=== PATIENT | female | born 1950 | race Caucasian/White ===

== ENCOUNTER 2022-07-05 09:16 | Day surgery (SDC) | payer OTHER ==
[2022-06-29 16:02] VITALS: BMI 26.2
[2022-07-05] MEDS ORDERED: NEO/POLYMYX B SULF/DEXAMETH OPHTHALMIC 5ML BOTTLE ONE (09:29)
[2022-07-05] MEDS ORDERED: CARBACHOL 0.01% INTRA-OCULAR 1.5 ML VIAL ONE (09:29)
[2022-07-05] MEDS ORDERED: BSS (NA/CA/MG/K) BALANCED SALT SOLUTION OPHTH SOLN 15 ML BOTTLE ONE (09:29)
[2022-07-05] MEDS: TROPICAMIDE 1% OPHTH SOLN 15 ML BOTTLE ONE ×3 (10:45→10:55)
[2022-07-05] MEDS: CIPROFLOXACIN 0.3% EYE DROPS 5 ML BOTTLE ONE ×3 (10:45→10:55)
[2022-07-05] MEDS: PHENYLEPHRINE 2.5% OPHTH SOLN 15 ML BOTTLE ONE ×3 (10:45→10:55)
[2022-07-05] MEDS: CYCLOPENTOLATE 2% OPHTH SOLN 2 ML BOTTLE ONE ×3 (10:45→10:55)
[2022-07-05 10:47] VITALS: RESP 16
[2022-07-05] MEDS ORDERED: MIDAZOLAM HCL 2 MG/2 ML SINGLE DOSE VIAL ONE (11:43)
[2022-07-05] MEDS ORDERED: KETOROLAC TROMETHAMINE 30 MG/1 ML VIAL ONE (11:43)
[2022-07-05 12:47] VITALS: BP 145/89; PULSE 82
[2022-07-05 13:08] VITALS: TEMP 97.5
== END 2022-07-05 13:00 | disposition home or self-care (01) ==
LOC: FASU 09:16
PROVIDERS: ATTEND Ophthalmology
PROC: 08RK3JZ Replacement of Left Lens with Synthetic Substitute, Percutaneous Approach (ICD-10-PCS; principal; 2022-07-05 11:57)
DX: H26.8 Other specified cataract (principal)
CPT/HCPCS: 66984; V2632; 82962

== ENCOUNTER 2022-09-06 06:54 | Day surgery (SDC) | payer OTHER ==
[2022-09-01 11:25] VITALS: BMI 26.2
[2022-09-06] MEDS: CYCLOPENTOLATE 2% OPHTH SOLN 2 ML BOTTLE ONE ×3 (07:30→07:40)
[2022-09-06] MEDS: TROPICAMIDE 1% OPHTH SOLN 15 ML BOTTLE ONE ×3 (07:30→07:40)
[2022-09-06] MEDS: CIPROFLOXACIN 0.3% EYE DROPS 5 ML BOTTLE ONE ×3 (07:30→07:40)
[2022-09-06] MEDS: PHENYLEPHRINE 2.5% OPHTH SOLN 15 ML BOTTLE ONE ×3 (07:30→07:40)
[2022-09-06] MEDS ORDERED: MIDAZOLAM HCL 2 MG/2 ML SINGLE DOSE VIAL ONE (08:10)
[2022-09-06] MEDS ORDERED: LIDOCAINE 1% P/F 10 MG/ML VIAL ONE (08:54)
[2022-09-06] MEDS ORDERED: TETRACAINE 0.5% OPHTH SOLN 2 ML BOTTLE ONE (08:54)
[2022-09-06] MEDS ORDERED: NEO/POLYMYX B SULF/DEXAMETH OPHTHALMIC 5ML BOTTLE ONE (08:54)
[2022-09-06] MEDS ORDERED: BSS (NA/CA/MG/K) BALANCED SALT SOLUTION OPHTH SOLN 15 ML BOTTLE ONE (08:54)
[2022-09-06] MEDS ORDERED: CARBACHOL 0.01% INTRA-OCULAR 1.5 ML VIAL ONE (08:54)
[2022-09-06 09:38] VITALS: RESP 18; TEMP 97.8
[2022-09-06 10:11] VITALS: BP 124/71; PULSE 62
== END 2022-09-06 10:13 | disposition home or self-care (01) ==
LOC: FASU 06:54
PROVIDERS: ATTEND Ophthalmology
PROC: 08RJ3JZ Replacement of Right Lens with Synthetic Substitute, Percutaneous Approach (ICD-10-PCS; principal; 2022-09-06 09:06)
DX: H26.8 Other specified cataract (principal)
CPT/HCPCS: 66984; V2632; 82962

== ENCOUNTER 2024-02-18 10:50 | Emergency (ER) | payer OTHER ==
[2024-02-18 10:56] VITALS: BMI 26.0
[2024-02-18] MEDS ORDERED: ACETAMINOPHEN INJECTION 100 ML IVPB ONE (11:22)
[2024-02-18] MEDS: LACTATED RINGERS SOLUTION 1000 ML INFUS.BAG IV ONE (11:45)
[2024-02-18] MEDS: ACETAMINOPHEN 1000 MG/100 ML BAG IVPB ONE (11:50)
[2024-02-18 12:03] LABS: HEMATOCRIT 34.4 % (32.4-45.2); HEMOGLOBIN 11.3 G/dL (10.7-15.3); MCH 29.7 pg (25.7-33.7); MCHC 32.9 g/dl (32.0-36.0); MEAN CELL VOLUME 90.2 fl (80-96); MEAN PLT VOLUME 8.4 fl (7.5-11.1); PLATELET COUNT 287.9 10^3/uL (134-434); RBC 3.81 10^6/uL (3.60-5.2); RDW 13.8 % (11.6-15.6); WHITE BLOOD COUNT 5.7 10^3/uL (4.0-10.8)
[2024-02-18 12:14] LABS: INR 0.92 (0.83-1.09); PROTHROMBIN TIME (PATIENT) 10.7 SEC (9.7-13.0)
[2024-02-18 12:17] LABS: ACTIVATED PTT 32.8 SECONDS (25.2-36.5)
[2024-02-18 12:25] LABS: PLATELET ESTIMATE SLT INCREASE
[2024-02-18 12:56] VITALS: BP 142/65; PULSE 58; RESP 15; TEMP 98
[2024-02-18 13:07] LABS: ALBUMIN 4.7 g/dl (3.4-5.0); BILIRUBIN,TOTAL 0.7 mg/dl (0.2-1); CALCIUM 9.6 mg/dl (8.5-10.1); CREATININE 0.7 mg/dl (0.6-1.3); POTASSIUM 4.4 mmol/L (3.5-5.1); TOT PROT 7.1 g/dl (6.4-8.2)
== END 2024-02-18 13:40 | disposition home or self-care (01) ==
LOC: FER 10:50
PROC: 3E030NZ Introduction of Analgesics, Hypnotics, Sedatives into Peripheral Vein, Open Approach (ICD-10-PCS; principal; 2024-02-18)
DX: S05.11XA Contusion of eyeball and orbital tissues, right eye, initial encounter (principal); R55 Syncope and collapse; W19.XXXA Unspecified fall, initial encounter; Z20.822 Contact with and (suspected) exposure to COVID-19
CPT/HCPCS: 0241U-QW; 36415; 70450-TC; 70486-TC; 71045-TC-FY; 80053; 81003; 84484; 85027; 85610; 85730; 87086; 93005; 99285-25; J0131